=== PATIENT | male | born 1985 | race Caucasian/White ===

== ENCOUNTER 2025-05-11 11:28 | Emergency (ER) | payer BC ==
[~2025-05-11] VITALS: Ht 187.9 cm; Wt 163.3 kg
[2025-05-11] MEDS ORDERED: NITROGLYCERIN 1 IN PACKET T ONE (12:10)
[2025-05-11] MEDS ORDERED: Ondansetron Hydrochloride 4 MG/2 ML VIAL IV ONE (12:10)
[2025-05-11] MEDS ORDERED: ASPIRIN 325 MG TAB PO ONE (12:10)
[2025-05-11 12:35] LABS: BASO # 0.0 10*3/uL (0.0-0.1); BASO % 0.4 % (0.0-1.0); EOS # 0.2 10*3/uL (0.0-0.4); EOS % 2.8 % (1.0-4.0); MEAN CELL VOLUME 90.5 fl (80.0-94.0); MEAN CORPUSCULAR HGB 31.8 pg (27.0-31.0); MEAN PLATELET VOLUME 9.8 fl (9.6-12.3); MONO # 0.6 10*3/uL (0.1-1.0); MONO % 7.9 % (3.0-9.0); NEUT # 4.1 10*3/uL (2.3-7.9); NEUT % 57.8 % (47.0-73.0); NUCLEATED RED BLOOD CELL 0.0 % (0.0-0.0); NUCLEATED RED BLOOD CELL 0.0 10*3/uL (0.0-0.0); PLATELET COUNT AUTOMATED 173 10*3/uL (130-400); RED CELL DISTRI WIDTH 12.3 % (0-14.5)
[2025-05-11] MEDS ORDERED: CHLORTHALIDONE25 MG PO (12:38)
[2025-05-11] MEDS ORDERED: LISINOPRIL40 MG PO (12:38)
[2025-05-11] MEDS ORDERED: AMLODIPINE BESY10 MG PO (12:39)
[2025-05-11] MEDS ORDERED: METOPROLOL SUCC25 M2 PO (12:39)
[2025-05-11 12:58] LABS: BUN 13 mg/dl (9-23); CPK 217 U/L (34-171)
== END 2025-05-11 15:14 | disposition home or self-care (01) ==
LOC: ED 11:28
PROVIDERS: Emergency Medicine
DX: S29.012A Strain of muscle and tendon of back wall of thorax, initial encounter (principal); R07.89 Other chest pain; I10 Essential (primary) hypertension; Z79.899 Other long term (current) drug therapy; X58.XXXA Exposure to other specified factors, initial encounter; Y93.89 Activity, other specified; Y92.89 Other specified places as the place of occurrence of the external cause; Y99.8 Other external cause status